=== PATIENT | male | born 1960 | race Caucasian/White ===

== ENCOUNTER 2024-03-30 04:34 | Day surgery (SDC) | payer OTHER ==
[2024-03-24 13:24] VITALS: BMI 30.2
[2024-03-30 10:38] VITALS: TEMP 98.2
[2024-03-30 10:40] VITALS: RESP 14
[2024-03-30 10:43] VITALS: BP 125/72; PULSE 70
== END 2024-03-30 10:45 | disposition home or self-care (01) ==
LOC: JASU-ENDO 04:34
PROVIDERS: ATTEND Internal Medicine Gastroenterology
PROC: 0DBL8ZX Excision of Transverse Colon, Via Natural or Artificial Opening Endoscopic, Diagnostic (ICD-10-PCS; principal; 2024-03-30 09:00)
DX: Z12.11 Encounter for screening for malignant neoplasm of colon (principal); K63.5 Polyp of colon; K57.30 Diverticulosis of large intestine without perforation or abscess without bleeding; K64.8 Other hemorrhoids; K92.1 Melena
CPT/HCPCS: 88305-TC